=== PATIENT | male | born 1960 | race Caucasian/White ===

== ENCOUNTER 2016-10-08 19:52 | Inpatient (IN) | payer BC, OTHER ==
[~2016-10-08] VITALS: Ht 185.4 cm; Wt 108.9 kg
[2016-10-08] MEDS ORDERED: THIAMINE HCL 200 MG/2 ML VIAL IM ONE (22:45)
[2016-10-08] MEDS ORDERED: MIRALAX 17 GM POWD.PACK PO PRN (22:45)
[2016-10-08] MEDS ORDERED: MAG HYDROX/AL HYDROX/SIMETH 30 ML LIQUID UDC PO PRN (22:45)
[2016-10-08] MEDS ORDERED: LOPERAMIDE HCL 2 MG CAPSULE PO PRN ×2 (22:45)
[2016-10-08] MEDS ORDERED: ONDANSETRON ODT 4 MG TAB.RAPDIS SL PRN (22:45)
[2016-10-08] MEDS ORDERED: CLONIDINE HCL 0.1 MG TABLET PO PRN (22:45)
[2016-10-08] MEDS ORDERED: ONDANSETRON 4 MG/2 ML VIAL IM PRN (22:45)
[2016-10-08] MEDS ORDERED: LORAZEPAM 1 MG TABLET PO PRN ×2 (22:45)
[2016-10-08] MEDS ORDERED: diphenhydrAMINE 50 MG CAPSULE PO PRN (22:45)
[2016-10-08] MEDS ORDERED: ACETAMINOPHEN 325 MG TABLET PO PRN (22:45)
[2016-10-08] MEDS ORDERED: LORAZEPAM 2 MG/1 ML VIAL IM PRN (22:45)
--- NOTE | 2016-10-08 23:15 | NUR ---
INTAKE NOTE: PRE-ADMISSION ASSESSMENT: PATIENT IS A 55 YEAR OLD MALE, SEEN IN INTAKE OFFICE, AAOx4, PATIENT IS AMBULATORY WITH STEADY GAIT. VITAL SIGNS TAKEN: T: 97.9; BP: 152/84; HR: 112; RR: 20; O2 SAT: 98%, PAIN LEVEL:"0/10". NO SOB AND WITH NO ANXIETY NOTED AT THIS TIME. DISCUSSED WITH PATIENT ADMISSION POLICIES OF THE UNIT. PATIENT IS COHERENT AND ABLE TO RESPOND TO QUESTIONS APPROPRIATELY. PATIENT REPORTS THAT HE IS USING THE FOLLOWING SUBSTANCE: 1. ALCOHOL ORAL - "SINCE 1975": "750 ML VODKA EVERY DAY SINCE 02/2013 LAST USE ON 10/04/16". 2. MARIJUANA SMOKING: "EVERY DAY LESS THEN 0.5 GRAM SINCE 1915. LAST USE ON 10/08/16". PATIENT VERBALIZED INSTRUCTIONS AND TEACHINGS REGARDING UNIT PROTOCOLS SUCH TAKING VITAL SIGNS AND CIWA/COWS ASSESSMENTS Q4H. PATIENT VERBALIZED UNDERSTANDING AND AGREEMENT. WILL COMPLETE ADMISSION ASSESSMENT WHEN PATIENT IS BROUGHT TO UNIT.
[2016-10-08 23:30] VITALS: BP 141/98
--- NOTE | 2016-10-08 23:30 | NUR ---
ADMISSION NOTE: NEW ADMISSION IS A PATIENT IS A 55 YEAR OLD MALE, SEEN IN INTAKE OFFICE, AAOx4, PATIENT IS AMBULATORY WITH STEADY GAIT. VITAL SIGNS: T: 97.9; BP: 141/98; HR: 83; RR: 19; O2 SAT: 98%, PAIN LEVEL:"0/10". PATIENT REPORTS NKA. PATIENT IS ON VEGETARIAN DIET, FULL CODE, FALL AND SEIZURES PRECAUTIONS. PATIENT DENIES SEIZURES HISTORY. CIWA 8. PATIENT REPORTS ANXIETY, DEPRESSION, NERVOUSNESS, TREMORS, DIAPHORESIS, NASAL STIFFNESS/TEARS, BODY ACHES, AND RESTLESSNESS. HEIGHT IS 73 IN, AND WEIGHT BY STANDINGS SCALE IS 240 LBS. PATIENT REPORTS PCP AT THIS MOMENT: "DOCTOR ELIGIO ADAMS MD". PMH: ANXIETY, DEPRESSION, ALCOHOL DEPENDENCE, LEFT KNEE REPLACEMENT IN 11/2014; BACK SCIATICA SINCE 11/2015. PATIENT REPORTS SUBSTANCE ABUSE HISTORY: 1. ALCOHOL ORAL - "SINCE 1975": "750 ML VODKA EVERY DAY SINCE 02/2013 LAST USE ON 10/04/16". 2. MARIJUANA SMOKING: "EVERY DAY LESS THEN 0.5 GRAM SINCE 1915. LAST USE ON 10/08/16". PATIENT DENIES HISTORY OF DETOX/TREATMENTS. PATIENT BROUGHT UNIDENTIFIED LOSS 12 PILLS - HOME MEDICATIONS. UPON INITIAL ASSESSMENT, RESPIRATIONS EVEN AND UNLABORED. LUNGS SOUNDS ARE CLEAR THROUGHOUT, PATIENT DENIES SOB/COUGH AND CHEST PAIN. ABDOMEN IS SOFT, NON-TENDER. BOWEL SOUNDS ARE ACTIVE IN ALL X4 QUADRANTS. LAST BM ON "10/08/2016". PATIENT SKIN IS INTACT, WARM AND DRY. UDS TEST COLLECTED AND SENT TO LAB. WRITTEN SMOKING CESSATION EDUCATION PROVIDED. PATIENT VERBALIZED UNDERSTANDING. ALL NEEDS MET. SAFETY MEASURES IN THE PLACE: CALL LIGHT WITHIN REACH, BED LOCKED, AND IN THE LOWEST POSITION, PADDED RAILS UPX2. WILL CONTINUE TO MONITOR CLOSELY.
[2016-10-08 23:35] LABS: BASOPHILS % (AUTO) 0.6 % (0.0-2.0); EOSINOPHILS # (AUTO) 0.4 K/uL (0.0-0.7); EOSINOPHILS % (AUTO) 5.8 % (0.0-7.0); HEMATOCRIT 37.7 % (40-50); HEMOGLOBIN 12.7 G/DL (14.0-18.0); LYMPHOCYTES # (AUTO) 0.8 K/UL (0.8-4.8); LYMPHOCYTES % (AUTO) 10.9 % (20.5-51.5); MEAN CORPUSCULAR HEMOGLOBIN 32.3 UUG (27.0-31.0); MEAN CORPUSCULAR HGB CONC 34 g/dL (32.0-37.0); MEAN CORPUSCULAR VOLUME 96.3 FL (82.0-92.0); MONOCYTES # (AUTO) 0.7 K/UL (0.1-1.30); MONOCYTES % (AUTO) 10.1 % (0.0-11.0); NEUTROPHILS # (AUTO) 5.3 K/UL (1.8-8.9); NEUTROPHILS % (AUTO) 72.6 % (38.5-71.5); PLATELET COUNT (AUTO) 203 K/UL (150-450); RED BLOOD CELL COUNT(AUTO) 3.92 MIL/UL (4.7-6.1); WHITE BLOOD COUNT (AUTO) 7.2 K/UL (4.0-11.2)
[2016-10-08 23:41] LABS: *AMPHETAMINE, URINE NEGATIVE (NEGATIVE); *BARBITURATE, URINE NEGATIVE (NEGATIVE); *CANNABINOID, URINE POSITIVE (NEGATIVE); *COCCAINE, URINE POSITIVE (NEGATIVE); *OPIATE, URINE NEGATIVE (NEGATIVE); *PHENCYCLIDINE SCREEN,URINE NEGATIVE (NEGATIVE)
[2016-10-08 23:55] LABS: ALANINE AMINOTRANSFERASE 39 U/L (16-63); ALKALINE PHOSPHATASE 90 U/L (50-136); AMYLASE 62 U/L (25-115); ASPARTATE AMINOTRANSFERASE 37 U/L (15-37); BILIRUBIN,TOTAL 0.5 mg/dL (0.2-1.0); CARBON DIOXIDE 27 mmol/L (21-32); CHLORIDE 101 mmol/L (98-107); CREATININE 1.5 mg/dL (0.6-1.3); ETHANOL < 3 MG/DL (0-0); GLUCOSE 134 mg/dL (74-106); LIPASE 308 U/L (73-393); MAGNESIUM 1.6 mg/dL (1.8-2.4); POTASSIUM 3.8 mmol/L (3.5-5.1); TOTAL PROTEIN, SERUM 8.9 g/dL (6.4-8.2); UREA NITROGEN, BLOOD 25 mg/dL (7-18)
[2016-10-09] MEDS ORDERED: [UNRECOGNIZED DRUG - REMARK] (00:15)
[2016-10-09 00:17] LABS: EOSINOPHILS % (MANUAL) 5 % (0-8); LYMPHOCYTES % (MANUAL) 15 % (20-40); MONOCYTES % (MANUAL) 7 % (2-10); NEUTROPHILS % (MANUAL) 73 % (42-75)
[2016-10-09] MEDS ORDERED: MAGNESIUM OXIDE 400 MG TABLET PO ONE (00:30)
[2016-10-09] MEDS ORDERED: LORAZEPAM 1 MG TABLET ONE (00:40)
--- NOTE | 2016-10-09 00:40 | NUR ---
MAG-OX 400 MG 1 TAB PO ADMINISTRATED FOR LOW MAGNESIUM LEVEL, ORDERED. PATIENT TOLERATED WELL. ALL NEEDS MET. SAFETY MEASURES IN THE PLACE: CALL LIGHT WITHIN REACH, BED LOCKED, AND IN THE LOWEST POSITION, PADDED RAILS UPX2. WILL CONTINUE TO MONITOR CLOSELY.
--- NOTE | 2016-10-09 00:41 | NUR ---
PRN ATIVAN 1 MG 1 TAB PO ADMINISTRATION PATIENT C/O INCREASED ANXIETY. CIWA 8. PATIENT REPORTS ANXIETY, DEPRESSION, NERVOUSNESS, TREMORS, DIAPHORESIS, NASAL STIFFNESS/TEARS, BODY ACHES, AND RESTLESSNESS. PRN ATIVAN 1 MG 1 TAB PO ADMINISTRATED ORDERED. PATIENT TOLERATED WELL. ALL NEEDS MET. SAFETY MEASURES IN THE PLACE: CALL LIGHT WITHIN REACH, BED LOCKED, AND IN THE LOWEST POSITION, PADDED RAILS UPX2. WILL CONTINUE TO MONITOR CLOSELY.
--- NOTE | 2016-10-09 01:41 | NUR ---
RE-ASSESSMENT Patient is sleeping. Respirations even and unlabored. RR: 15. PRN Ativan PO was effective. All needs met. Safety measures on place. Call light within reach, bed in lowest position and locked, padded rails up bilaterally rails up bilaterally. Will continue to monitor closely.
[2016-10-09 04:00] VITALS: BP 133/78
--- NOTE | 2016-10-09 06:47 | NUR ---
END OF SHIFT NOTE: Patient endorsed to day shift nurse in stable condition. Report given. Patient is a 55 year old male admitted to [facility] on 10/08/2016 for medically supervised withdrawal from Alcohol continue PRN Medications with tolerated well without ASE. Patient remained compliant with treatment, medications and diet regime. Patient reports NKA. Patient is on Full Code, Vegetarian Diet, Fall and Seizures Precautions. PMH: Anxiety, Alcohol Abuse. Marijuana dependence, Left Knee Replacement (2015), Back Sciatica (2016). VSWNL at 0400. CIWA 4 at 0400. Patient presented with anxiety, agitation, nervousness, diaphoresis, and restlessness. Patient denies SI/HI. Respirations unlabored and even. Patient denies SOB and chest pain. Respirations unlabored and even. Skin is intact, warm and dry to touch. DVT Pump applied as ordered. Patient tolerated well. Encourage fluids as tolerated. Encourage to attend group activities. Magnesium Oxide (Mag-Ox) 400 mg 1 tab PO administrated as ordered for Magnesium Level: 1.6(L). PRN Ativan 1 mg 1 tab PO given as ordered for anxiety/ CIWA 8, and was effective. Patient slept 4 hours, intake 500 ml, voided x1. All needs met. Safety measures on place. Call light within reach, bed in lowest position and locked, padded rails up bilaterally.
--- NOTE | 2016-10-09 07:10 | NUR ---
Start Of Shift Patient Received from manager shift nurse. Patient is a 55 year old male admitted to [facility] on 10/08/2016 for medically supervised withdrawal from Alcohol, under the care of Dr. Kay. Pt is full code vegetarian diet on fall and seizure precautions denies any food or drug allergies. Patient is currently receiving a 5 day Ativan taper tolerating well. Reports PMH: Anxiety, Alcohol Abuse. Marijuana dependence, Left Knee Replacement (2015), Back Sciatica (2016). Treatment plan tolerated well by the patient as evidenced by pts last CIWA score of 4 which was taken at 0400. Pt received PRN Ativan 1mg last night for anxiety which was effective per manager shift nurse. Fluids encouraged to facilitate the detox process. Pt is currently in his room laying in bed watching TV. All safety measures in place per hospital policy. Bed in lowest position, side rails up x2, call-light within reach. Will continue to monitor and provide support.
[2016-10-09 08:00] VITALS: BP 127/84
[2016-10-09] MEDS ORDERED: TUBERCULIN,PURIF.PROT.DERIV. 5 TU/0.1 ML TEST ID ONE (09:00)
[2016-10-09] MEDS ORDERED: LORAZEPAM 1 MG TABLET PO SCH (09:00)
[2016-10-09] MEDS: THIAMINE HCL 100 MG TABLET PO SCH (09:37)
[2016-10-09] MEDS: FOLIC ACID 1 MG TABLET PO SCH (09:37)
[2016-10-09] MEDS: MULTIVITAMINS,THERAPEUTIC TABLET PO SCH (09:37)
[2016-10-09 12:00] VITALS: BP 127/93
[2016-10-09] MEDS ORDERED: LORAZEPAM 1 MG TABLET PO PRN ×2 (12:00)
[2016-10-09] MEDS ORDERED: GABAPENTIN 300 MG CAPSULE PO SCH ×2 (15:00→21:00)
[2016-10-09] MEDS: LORAZEPAM 1 MG TABLET PO SCH ×5 (15:06→21:00)
[2016-10-09 16:00] VITALS: BP 150/109
[2016-10-09] MEDS: LIDOCAINE 5% PATCH TD SCH (16:59)
--- NOTE | 2016-10-09 17:20 | NUR ---
PRN MEDICATION Pt c/o Anxiety presented with agitation and restlessness requested something for relief, non-pharmacological techniques interventions provided x3 and were not effective. Pt's BP 142/81mmhg PRN Clonidine 0.1mg administered PO, educated pt about s/e of medication and when to contact nurse. all needs met, all safety measures in place, will continue to monitor.
--- NOTE | 2016-10-09 18:20 | NUR ---
PRN REASSESSMENT Medication effective pt reported a decrease in anxiety stating "The medication really helped me out with the anxiety i feel so much better now" will continue to monitor
--- NOTE | 2016-10-09 19:04 | NUR ---
End Of Shift 24 Report given to fast food shift lead, Patient is a 55 year old male admitted to [facility] on 10/08/2016 for medically supervised withdrawal from Alcohol, under the care of Dr. Kay. Pt is full code vegetarian diet on fall and seizure precautions denies any food or drug allergies. Patient is currently receiving a modified Ativan taper tolerating well. VS monitored closely q 4 hours. Withdrawal symptoms were closely monitored. Initial CIWA 5. Patient encouraged adequate PO fluid intake as tolerated. Patient presented with tremors and anxiety during the day. Last CIWA 4. Per patient, Ativan has been helping him with withdrawal symptoms. Pt ate all of his meals. Pt received PRN Clonidine during day shift, all medications effective. Patient encouraged to attend group therapies/sessions to learn new coping skills to recent relapse, patient denies SI/HI. Participated in group and therapy sessions. All needs met and attended.
--- NOTE | 2016-10-09 19:04 | NUR ---
START OF SHIFT NOTE: Patient endorsed to day shift nurse in stable condition. Report given. Patient is a 55 year old male admitted to [facility] on 10/08/2016 for medically supervised withdrawal from Alcohol continue ordered Modified Ativan Taper with tolerated well without ASE. Patient remained compliant with treatment, medications and diet regime. Patient reports NKA. Patient is on Full Code, Vegetarian Diet, Fall and Seizures Precautions. PMH: Anxiety, Alcohol Abuse. Marijuana dependence, Left Knee Replacement (2015), Back Sciatica (2016). VSWNL. CIWA 5. Patient presented with anxiety, agitation, nervousness, diaphoresis, and restlessness. Patient denies SI/HI. Respirations unlabored and even. Patient denies SOB and chest pain. Respirations unlabored and even. Skin is intact, warm and dry to touch. DVT Pump applied as ordered. Patient tolerated well. Doctor Shaun Kay MD at bedside assessed patient. Encourage fluids as tolerated. Encourage to attend group activities. All needs met. Safety measures on place. Call light within reach, bed in lowest position and locked, padded rails up bilaterally.
[2016-10-09 20:00] VITALS: BP 136/78
[2016-10-09] MEDS: IBUPROFEN 400 MG TABLET PO PRN (20:54)
--- NOTE | 2016-10-09 20:54 | NUR ---
PRN MOTRIN 400 MG 1 TAB PO ADMINISTRATION. Patient c/o Low Back Pain "10/02" and asked aid. PRN Motrin 400 mg 1 tab PO administrated with full glass of water as ordered. Patient tolerated well. All needs met. Safety measures on place. Call light within reach, bed in lowest position and locked, padded rails up bilaterally rails up bilaterally. Will continue to monitor closely.
--- NOTE | 2016-10-09 21:00 | NUR ---
Communication/Ativan Non-Admin: Duplicate order entered for 21:00 scheduled dose of Ativan taper. Scheduled dose of Ativan 1mg administered by primary nurse at 20:30. Dr Perez aware.
--- NOTE | 2016-10-09 21:54 | NUR ---
RE-ASSESSMENT Patient is sleeping. Respirations even and unlabored. RR: 14. PRN Motrin PO were effective. All needs met. Safety measures on place. Call light within reach, bed in lowest position and locked, padded rails up bilaterally rails up bilaterally. Will continue to monitor closely.
[2016-10-09] MEDS ORDERED: KETOROLAC TROMETHAMINE 30 MG INJ IM PRN (22:30)
[2016-10-10] VITALS: BP 133/77
[2016-10-10 04:00] VITALS: BP 123/86
[2016-10-10 07:06] LABS: HEPATITIS B SURFACE AG Negative (Negative)
--- NOTE | 2016-10-10 07:16 | NUR ---
END OF SHIFT NOTE: Patient endorsed to day shift nurse in stable condition. Report given. Patient is a 55 year old male admitted to [facility] on 10/08/2016 for medically supervised withdrawal from Alcohol continue PRN Medications with tolerated well without ASE. Patient remained compliant with treatment, medications and diet regime. Patient reports NKA. Patient is on Full Code, Vegetarian Diet, Fall and Seizures Precautions. PMH: Anxiety, Alcohol Abuse. Marijuana dependence, Left Knee Replacement (2015), Back Sciatica (2016). VSWNL at 0400. CIWA 3 at 0400. Patient presented with anxiety, agitation, nervousness, diaphoresis, and restlessness. Patient denies SI/HI. Respirations unlabored and even. Patient denies SOB and chest pain. Respirations unlabored and even. Skin is intact, warm and dry to touch. DVT Pump applied as ordered. Patient tolerated well. Encourage fluids as tolerated. Encourage to attend group activities. PRN Motrin 400 mg 1 tab PO administrated as ordered for Back Pain "10/02" and was effective. Patient slept 8 hours 15 minutes, intake 650 ml, voided x1. All needs met. Safety measures on place. Call light within reach, bed in lowest position and locked, padded rails up bilaterally.
--- NOTE | 2016-10-10 07:45 | NUR ---
START OF SHIFT Rcvd endorsement from ongoing nurse, client is in room, a/o x4, he presents with anxious mood, flat affect, flushed face and moist skin, VTE 2, he is wearing IPCD and tolerating well, no anticoagulant therapy. He reports restless legs, abdominal cramps, lower back pain 4/10. Encouraged client to increase fluid intake to facilitate detox. Encourage client to attend group therapy for skills to maintain sobriety. Client is a 55 yo male admitted for withdrawal from alcohol. He is on last of 2 day Ativan taper, tolerating well. Last CIWA 3 @ 0400. He reports NKA, full code, vegetarian diet. PRN Motrin 400mg for low back pain, noted effective. Client slept 8 hrs. Client denies a history of withdrawal-induced seizure. He is on seizure precautions. Call light within reach. Side rails up x2/padded, bed locked and in low position
--- NOTE | 2016-10-10 07:45 | NUR ---
START OF SHIFT Rcvd endorsement from ongoing nurse, client is in room, a/o x4, he presents with anxious mood, flat affect, flushed face and moist skin, he is wearing IPCD and tolerating well, no anticoagulant therapy. He reports restless legs, abdominal cramps, lower back pain 06/02. Encouraged client to increase fluid intake to facilitate detox. Encourage client to attend group therapy for skills to maintain sobriety. Client is a 55 yo male admitted for withdrawal from alcohol. He is on last of 2 day Ativan taper , tolerating well. Last CIWA 3 @ 0400. He reports NKA, full code, vegetarian diet. PRN Motrin 400mg for low back pain, noted effective. Client slept 8 hrs. Client denies a history of withdrawal-induced seizure. He is on seizure precautions. Call light within reach. Side rails up x2/padded, bed locked and in low position Addendum: 10/10/16 at 1328 by TESSIE PATEL RN DUPLICATE ENTRY
[2016-10-10 08:36] VITALS: BP 116/70
[2016-10-10] MEDS: MULTIVITAMINS,THERAPEUTIC TABLET PO SCH (08:51)
[2016-10-10] MEDS: LORAZEPAM 1 MG TABLET PO SCH (08:51)
[2016-10-10] MEDS: FOLIC ACID 1 MG TABLET PO SCH (08:51)
[2016-10-10] MEDS: THIAMINE HCL 100 MG TABLET PO SCH (08:51)
[2016-10-10] MEDS: IBUPROFEN 400 MG TABLET PO PRN ×2 (08:51→17:02)
[2016-10-10] MEDS: LIDOCAINE 5% PATCH TD SCH (08:51)
--- NOTE | 2016-10-10 08:51 | NUR ---
PRN Motrin 400mg Client reports low back pain 4/10, will continue to monitor. Call light within reach.
[2016-10-10] MEDS ORDERED: LORAZEPAM 1 MG TABLET PO SCH (09:00)
--- NOTE | 2016-10-10 09:51 | NUR ---
Reassessment PRN Motrin 400mg Client reports some relief on low back pain 03/04, but tolerable. Call light within reach.
[2016-10-10] MEDS ORDERED: VALS40TA11 PO (10:24)
[2016-10-10] MEDS ORDERED: NEBI5TAB8 PO (10:24)
[2016-10-10] MEDS ORDERED: GABA-534 PO (10:24)
[2016-10-10] MEDS: GABAPENTIN 300 MG CAPSULE PO SCH ×2 (12:05→17:02)
--- NOTE | 2016-10-10 12:06 | NUR ---
PRN Tylenol 650mg Client reports low back pain 4/10, will continue to monitor. Call light within reach.
[2016-10-10] MEDS ORDERED: LORAZEPAM 1 MG TABLET PO PRN ×2 (12:15)
[2016-10-10 12:31] VITALS: BP 122/88
--- NOTE | 2016-10-10 13:06 | NUR ---
Reassessment PRN Tylenol 650mg Client reports some relief on low back pain 03/04, but tolerable. Call light within reach.
[2016-10-10 13:58] LABS: *BARBITURATE, URINE NEGATIVE (NEGATIVE)
[2016-10-10 13:59] LABS: *AMPHETAMINE, URINE NEGATIVE (NEGATIVE); *CANNABINOID, URINE POSITIVE (NEGATIVE); *COCCAINE, URINE POSITIVE (NEGATIVE); *OPIATE, URINE NEGATIVE (NEGATIVE); *PHENCYCLIDINE SCREEN,URINE NEGATIVE (NEGATIVE)
[2016-10-10 16:55] VITALS: BP 144/96
--- NOTE | 2016-10-10 17:02 | NUR ---
PRN Motrin 400mg Client reports low back pain 4/10, will continue to monitor. Call light within reach.
--- NOTE | 2016-10-10 18:02 | NUR ---
Reassessment PRN Motrin 400mg Client reports some relief on low back pain 03/04, but tolerable. Call light within reach.
--- NOTE | 2016-10-10 19:19 | NUR ---
END OF SHIFT Client is a 55 yo male admitted for withdrawal from alcohol. He completed 2 day Ativan taper , tolerated well. Last CIWA 4 @ 1600. He is scheduled for discharge tomorrow. Urine for drug test collected. He reports NKA, full code, vegetarian diet. PRN Motrin 400mg x 2, Tylenol 650mg for low back pain, noted effective. Client was compliant with group therapy. Adequate PO intake, client void x 2. Safety measures in place, call light within reach, side rails up x2/padded, bed locked and in low position. Endorsed to incoming nurse
[2016-10-10 20:00] VITALS: BP 148/97
--- NOTE | 2016-10-10 20:00 | NUR ---
START OF SHIFT NOTE RECEIVED REPORT FROM DAY SHIFT NURSE. PATIENT IS A 55 YEAR OLD MALE ADMITTED FOR ETOH DEPENDENCE. PATIENT COMPLETED 2 DAY ATIVAN TAPER . PATIENT IS MEDICALLY CLEARED TO BE DISCHARGE TOMORROW. PATIENT WAS GIVEN MOTRIN X2 AND TYLENOL. LAST COWS 4. PATIENT WAS EMOTIONAL BUT COMPLIANT WITH MEDS AND TREATMENT PLAN. APPETITE IS GOOD AND ATTENDED GROUPS. PATIENT IS VEGETARIAN . NO SEIZURE HISTORY. SKIN INTACT. ON FALL/SEIZURE PRECAUTION. SAFETY MEASURES IN PLACE. CALL LIGHT IN REACH. WILL CONTINUE TO MONITOR
--- NOTE | 2016-10-10 22:25 | NUR ---
PRN BENADRYL ADMINISTRATION PATIENT REQUESTS FOR SLEEP AID. PRN BENADRYL GIVEN. WILL MONITOR FOR EFFECTIVENESS
--- NOTE | 2016-10-10 23:25 | NUR ---
[place] RE-ASSESSMENT PATIENT ASLEEP AT THIS TIME. RESPIRATION EVEN AND UNLABORED. SAFETY MEASURES IN PLACE. CALL LIGHT IN REACH. WILL CONTINUE TO MONITOR.
[2016-10-11] VITALS: BP 145/99
--- NOTE | 2016-10-11 07:02 | NUR ---
END OF SHIFT NOTE MONITORED PATIENT THROUGHOUT SHIFT. PATIENT COMPLIANT WITH MEDICATIONS AND TREATMENT PLAN. PATIENT COMPLETED 2 DAY ATIVAN TAPER FOR ETOH DEPENDENCE, TOLERATED WELL. NO ADVERSE REACTION. PATIENT IS MEDICALLY CLEARED TO BE DISCHARGE TODAY. PATIENT WAS GIVEN BENADRYL FOR SLEEP AT 2225.PATIENT WAS EMOTIONAL BEGINNING OF SHIFT DUE TO HIM DISCHARGING. HE STATES THAT HE BONDED WITH OTHER PATIENT HERE. APPETITE IS GOOD AND DRINKING FLUIDS WELL. SKIN INTACT. ON FALL/SEIZURE PRECAUTION. SAFETY MEASURES IN PLACE. CALL LIGHT IN REACH. WILL CONTINUE TO MONITOR. SLEPT 5 HOURS. FLUID INTAKE 500 ML. VOIDED X 1. NO BM. LAST CIWA 0 .
--- NOTE | 2016-10-11 07:30 | NUR ---
START OF SHIFT Client was admitted for alcohol withdrawal. He completed 2 day Ativan taper, tolerated well without any ASE. Client is scheduled to discharge today. Client states that he feels ready for discharge. Client has no complaints at this time. All needs addressed at this time. Will continue to monitor client. Call light within reach.
[2016-10-11] MEDS: THIAMINE HCL 100 MG TABLET PO SCH (08:20)
[2016-10-11] MEDS: MULTIVITAMINS,THERAPEUTIC TABLET PO SCH (08:20)
[2016-10-11] MEDS: LIDOCAINE 5% PATCH TD SCH (08:20)
[2016-10-11] MEDS: GABAPENTIN 300 MG CAPSULE PO SCH (08:20)
[2016-10-11] MEDS: FOLIC ACID 1 MG TABLET PO SCH (08:20)
[2016-10-11] MEDS: IBUPROFEN 400 MG TABLET PO PRN (08:20)
[2016-10-11 08:30] VITALS: BP 132/80
[2016-10-11] MEDS ORDERED: LORAZEPAM 1 MG TABLET PO SCH (09:00)
--- NOTE | 2016-10-11 09:40 | NUR ---
Zero induration noted at R forearm TB site
--- NOTE | 2016-10-11 09:52 | NUR ---
Discharge note Client was admitted for alcohol withdrawal. Client has a recent CIWA of 2. Client VS are WNL. Client's LBM was 10/11/16. Client denies any SI/HI. Client verbalized his understanding of the discharge instructions. Client has no complaints at this time. Client discharge instructions, prescriptions and all belongings returned to pt. All needs addressed at this time. Client ID band removed, client ambulated off of unit, client left facility via private car with his girlfriend for home.
[2016-10-12] MEDS ORDERED: LORAZEPAM 1 MG TABLET PO SCH (09:00)
[2016-10-13] MEDS ORDERED: LORAZEPAM 1 MG TABLET PO SCH (09:00)
== END 2016-10-11 09:52 | disposition home or self-care (01) | DRG 895 ==
LOC: SRC 22:10
PROVIDERS: ADMIT Internal Medicine; ATTEND Internal Medicine
PROC: HZ2ZZZZ Detoxification Services for Substance Abuse Treatment (ICD-10-PCS; principal; 2016-10-08)
PROC: HZ41ZZZ Group Counseling for Substance Abuse Treatment, Behavioral (ICD-10-PCS; 2016-10-09)
DX: F10.230 Alcohol dependence with withdrawal, uncomplicated (principal); N17.9 Acute kidney failure, unspecified; E83.42 Hypomagnesemia; Y90.9 Presence of alcohol in blood, level not specified; I12.9 Hypertensive chronic kidney disease with stage 1 through stage 4 chronic kidney disease, or unspecified chronic kidney disease; N18.9 Chronic kidney disease, unspecified; F12.10 Cannabis abuse, uncomplicated; M51.16 Intervertebral disc disorders with radiculopathy, lumbar region; Z96.652 Presence of left artificial knee joint; F32.9 Major depressive disorder, single episode, unspecified; F41.9 Anxiety disorder, unspecified
CPT/HCPCS: 36415; 70030-TC; 80307; 80349; 80353; 83690; 83735; 85025; 86580; 86592; 86705; 86803; 87340; 87806; G0480; J3411